=== PATIENT | female | born 1930 | race African-American/Black ===

== ENCOUNTER 2017-07-08 12:05 | Inpatient (IN) | payer OTHER ==
[~2017-07-08] VITALS: Ht 157.5 cm; Wt 45.4 kg
--- NOTE | ~2017-07-08 | EKG ---
[address] [address] ELECTROCARDIOGRAM REPORT Name: ALAN STEEN Room #: 446-P ADM IN M.R.#: [id number] Admission: 07/08/17 Attend Phys: Vince Guzman MD Discharge: Date of : 30 Report #: [id number] THIS REPORT FOR: //name// [facility] ED Test Date: 2017-07-08 Test Time: 12:20:39 Pat Name: ALAN STEEN Department: Room: 446 Gender: F Financial Analysis Consultant: [facility] : 1930 Requested By: Joe Hood Order Number: [id number] MD: Brian Quach Measurements Intervals Stevens Rate: 79 P: TX: QRS: -9 QRSD: 83 T: 158 QT: 382 QTc: 438 Interpretive Statements Atrial fibrillation LVH with secondary repolarization abnormality Inferior infarct, old No previous ECG available for comparison Electronically Signed On 07-09-2017 7:42:33 CDT by Brian Quach [email or web address] <ELECTRONICALLY SIGNED> By: Brian Quach MD, [facility] 07/09/17 0742 1220 1220 Brian Quach MD, FACC /EPI
--- NOTE | ~2017-07-08 | 2DMMODE ---
[facility] [place] [address] 2 D/M-MODE ECHOCARDIOGRAM Name: ALAN STEEN Room #: 446-P ADM IN .R.#: [id number] Admission: 07/08/17 Attend Phys: Vince Guzman MD Discharge: Date of : 30 Date of Service: 07/09/17 0900 Report #: [id number] THIS REPORT FOR: //name// APPROVED REPORT Study performed: 07/09/2017 08:18:18 EXAM: Comprehensive 2D, Doppler, and color-flow Echocardiogram Status: routine BSA: 1.42 HR: 73 bpm BP: 120/54 mmHg Rhythm: Atrial Fibrillation Other Information Study Quality: Adequate/thin body habitus, limited mobility Indications Chest Pressure Congestive Heart Failure Dyspnea Hx: Afib 2D Dimensions RVDd: 40.32 mm IVSd: 12.50 (7-11mm) LVOT Diam: 18.29 (18-24mm) LVDd: 32.08 mm PWd: 11.52 (7-11mm) Ascending Ao: 30.10 (22-36mm) Aortic Root: 29.39 mm Volumes Left Atrial Volume (Systole) Single Plane 4CH: 72.73 mL Single Plane 2CH: 78.32 mL LA ESV Index: 58.00 mL/m2 Aortic Valve AoV Peak Jagdish.: 1.28 m/s AO Peak Gr.: 6.58 mmHg LVOT Max P.72 mmHg LVOT Max V: 0.82 m/s MAI Vmax: 1.69 cm2 Mitral Valve MV Decel. Time: 139.11 ms [facility] [address] [place] [address] 2 D/M-MODE ECHOCARDIOGRAM Name: ALAN STEEN Room #: 446-P [facility] IN .R.#: [id number] Admission: 07/08/17 Attend Phys: Vince Guzman MD Discharge: Date of : 30 Date of Service: 07/09/17 0900 Report #: [id number] E Max Jagdish.: 0.88 m/s Pulmonary Valve PV Peak Jagdish.: 0.78 m/s PV Peak Gr.: 2.45 mmHg Tricuspid Valve TR Peak Jagdish.: 2.46 m/s RAP Estimate: 5.00 mmHg TR Peak Gr.: 24.35 mmHg PA Pressure: 29.00 mmHg Left Ventricle The left ventricle is normal size. There is normal LV segmental wall motion. Mild concentric left ventricular hypertrophy. Left ventricular systolic function is normal. LVEF is 55-60%. This study is not technically sufficient to allow evaluation of the LV diastolic function due to atrial fibrillation. Right Ventricle The right ventricle is normal size. The right ventricular systolic function is normal. Atria Left atrium is severely dilated. Right atrium is moderately dilated. Aortic Valve Aortic valve is mildly thickened and calcified. Trace aortic regurgitation. There is no aortic valvular stenosis. Mitral Valve Mitral valve leaflets are thickened. Mild mitral annular calcification. Mild mitral regurgitation. Tricuspid Valve The tricuspid valve is normal in structure. Moderate to severe tricuspid regurgitation. Estimated PAP is 29mmHg. Pulmonic Valve The pulmonary valve is normal in structure. Trace pulmonic regurgitation. Great Vessels The aortic root is normal in size. The ascending aorta is normal in size. IVC is normal in size and collapses >50% with inspiration. [facility] [address] [place] [address] 2 D/M-MODE ECHOCARDIOGRAM Name: ALAN STEEN Room #: 446-P ADM IN M.R.#: [id number] Admission: 07/08/17 Attend Phys: Vince Guzman MD Discharge: Date of : 30 Date of Service: 07/09/17899 Report #: [id number] Pericardium There is no pericardial effusion. <Conclusion> The left ventricle is normal size. Mild concentric left ventricular hypertrophy. Left ventricular systolic function is normal. Left atrium is severely dilated. Right atrium is moderately dilated. Aortic valve is mildly thickened and calcified. Mitral valve leaflets are thickened. Mild mitral annular calcification. Mild mitral regurgitation. Moderate to severe tricuspid regurgitation. Estimated PAP is 29mmHg. There is no pericardial effusion. <ELECTRONICALLY SIGNED> By: Ernie Kramer MD 07/09/17899 9 9 Ernie Kramer MD /JUAN
--- NOTE | ~2017-07-08 | H ---
[facility] [address] [place] [address] HISTORY AND PHYSICAL Name: ALAN STEEN Room #: 446-P ADM IN M.R.#: [id number] Admission: 07/08/17 Attend Phys: Vince Guzman MD Discharge: Date of : 30 Report #: [id number] THIS REPORT FOR: //name// CC: Danelle Guzman DATE OF SERVICE: 07/08/2017 CHIEF COMPLAINT: Shortness of air. HISTORY OF PRESENT ILLNESS: The patient is an 86-year-old -[place] female who is new to my service as of early this week at [facility]. She reports that she was recently hospitalized for shortness of breath. She does not remember the diagnosis. She complained that she had developed increasing lower extremity edema while she was in the hospital. She reports that her shortness of breath did not really show much improvement while she was at the hospital. She noted that the edema has increased from the time she was hospitalized and even when she was at the assisted facility. On the day of admission, she was found to be significantly short of breath with significant hypoxemia and the staff at the nursing facility could not obtain oxygen saturation above 90% even on 3 liters of oxygen per nasal cannula. She was brought to [facility] Emergency Room for evaluation and subsequently further medical management with working diagnosis of congestive heart failure. PAST MEDICAL HISTORY: Atrial fibrillation requiring chronic anticoagulation with warfarin. She reports that she does not follow with a float operator routinely. Her primary physician is Dr. Hoffmann. Other pertinent history include hyperthyroidism, hypertension, and osteoporosis. ALLERGIES: No known drug allergies. MEDICATIONS: DuoNeb nebulized treatments q.i.d., warfarin 3 mg daily, Toprol-XL 25 mg daily, diltiazem 240 mg daily, lisinopril 10 mg daily, Lasix 20 mg daily, potassium chloride 10 mEq daily, Colace 100 mg b.i.d. p.r.n., MiraLax 17 grams p.o. daily p.r.n., methimazole 5 mg daily, Fosamax 70 mg weekly. FAMILY HISTORY: Noncontributory. SOCIAL HISTORY: The patient is . She lives by herself. She does not use tobacco or alcohol. REVIEW OF SYSTEMS: As per history of present illness, otherwise 10-point review of system is negative. PHYSICAL EXAMINATION: [address] [address] HISTORY AND PHYSICAL Name: ALAN STEEN Room #: 446-P [facility].#: [id number] Admission: 07/08/17 Attend Phys: Vince Guzman MD Discharge: Date of : 30 Report #: [id number] GENERAL: The patient is a pleasant elderly -Micron[place] female, sitting up in bed in no apparent distress. VITAL SIGNS: Reveal temperature of 36.9, pulse of 85, respiratory rate 14, blood pressure ____. HEENT: Head is normocephalic, atraumatic. Pupils are equal and reactive. Extraocular muscles are intact. Oropharynx is moist. NECK: Supple. Trachea midline. LUNGS: With bibasilar crackles that extends custodial up both bases. CARDIOVASCULAR: Reveals irregularly irregular without evidence of distended neck veins or elevated jugular venous pressures. ABDOMEN: Soft, nontender, nondistended with normoactive bowel sounds. SKIN: Warm and dry. Turgor adequate. LYMPHATICS: No cervical or axillary lymphadenopathy. NEUROLOGIC: She is awake, alert, oriented x 3. Cranial nerves 2-12 within normal limits. No focal neurologic deficit or lateralizing signs. LABORATORY DATA: BMP with findings of BUN of 11, creatinine 1.2, GFR 52. Cholesterol is 197. Triglycerides 73. BNP is 3073. Hemoglobin and hematocrit are within normal limits. WBC is 8.2. RADIOGRAPHIC STUDIES: Include a chest x-ray showing cardiomegaly with mild patchy bibasilar atelectasis, scarring or pneumonitis. No evidence of failure. ASSESSMENT: 1. Congestive heart failure with elevated BNP, cardiomegaly and edema. 2. Chronic kidney disease stage 3. 3. Atrial fibrillation, rate controlled. 4. Hyperthyroidism. PLAN: Admission. Appreciate cardiology consultation. An echocardiogram has been ordered. We will give an additional dose of IV Lasix. An echocardiogram has been ordered as per Cardiology. We will resume warfarin and we will give Lovenox for DVT prophylaxis until warfarin is therapeutic. We will continue other home medications. We will also ask physical therapy and occupational therapy to work with her for strengthening and to maintain activities of daily living. By: 1202 1507 Vince Guzman MD /nt
[2017-07-08 12:07] VITALS: BP 152/78
[2017-07-08] MEDS ORDERED: CARDIZEM CD240 MG PO (12:16)
[2017-07-08] MEDS ORDERED: COLACE100 MG PO (12:19)
[2017-07-08] MEDS ORDERED: METHIMAZOLE5 MG PO (12:20)
[2017-07-08] MEDS ORDERED: MIRALAX17 GM PO (12:20)
[2017-07-08] MEDS ORDERED: LISINOPRIL10 MG PO (12:20)
[2017-07-08] MEDS ORDERED: DUONEB 2.5-0.5 M3 ML INH (12:20)
[2017-07-08] MEDS ORDERED: KLOR-CON 1010 MEQ PO (12:21)
[2017-07-08] MEDS ORDERED: LASIX 20 MG TAB20 MG PO (12:21)
[2017-07-08] MEDS ORDERED: ALENDRONATE SOD70 MG PO (12:21)
[2017-07-08] MEDS ORDERED: TOPROL XL25 MG PO (12:22)
[2017-07-08 13:25] LABS: ABSOLUTE NEUTROPHILS 6.5 thou/uL (1.4-8.2); BASOPHILS 0.2 % (0.0-2.0); EOSINOPHILS 0.8 % (0.0-3.0); HEMATOCRIT 37.5 % (37.0-47.0); HEMOGLOBIN 12.5 gm/dL (12.0-15.0); LYMPHOCYTES 11.1 % (24.0-44.0); MCH 31.4 pg (26.0-34.0); MCHC 33.3 g/dL (28.0-37.0); MCV 94.4 fL (80.0-100.0); MONOCYTES 9.5 % (1.0-8.0); PLATELET COUNT 298 thou/uL (150-400); POLYS 78.4 % (36.0-66.0); RBC 3.97 mil/uL (4.20-5.00); RDW 15.1 % (10.5-14.5); WBC 8.2 thou/uL (4.0-11.0)
[2017-07-08 13:27] LABS: MANUAL DIFF NO
[2017-07-08 13:31] LABS: ANION GAP 5 mmol/L (7-16); BUN 11 mg/dL (7-18); CALCIUM 9.2 mg/dL (8.5-10.1); CHLORIDE 100 mmol/L (98-107); CO2 31 mmol/L (21-32); CREATININE 1.2 mg/dL (0.6-1.0); GLUCOSE 105 mg/dL (74-106); POTASSIUM 3.8 mmol/L (3.5-5.1); SODIUM 136 mmol/L (136-145)
[2017-07-08 13:40] LABS: TROPONIN-I < 0.04 ng/mL (<0.04-0.07)
[2017-07-08 14:45] VITALS: BP 124/68
[2017-07-08 15:10] VITALS: BP 116/63
[2017-07-08 16:31] VITALS: BP 108/70
[2017-07-08 19:16] VITALS: BP 138/82
[2017-07-09 03:24] VITALS: BP 140/78
[2017-07-09 07:46] VITALS: BP 120/54
[2017-07-09 08:00] VITALS: BP 120/54
[2017-07-09 09:55] LABS: INR 1.1; PROTIME 11.4 Seconds (9.3-11.4)
[2017-07-09 10:21] LABS: CHOLESTEROL 197 mg/dL (<200); HDL CHOLESTEROL 50 mg/dL (>40); LDL CHOLESTEROL 133 mg/dL (<100); TC:HDL 3.9 Ratio (Not establshd); TRIGLYCERIDE 73 mg/dL (<150); VLDL 15 mg/dL (<40)
[2017-07-09 15:17] VITALS: BP 146/77
[2017-07-09 19:55] VITALS: BP 109/49
[2017-07-10 04:40] VITALS: BP 111/55
[2017-07-10 04:57] LABS: HEMATOCRIT 34.2 % (37.0-47.0); HEMOGLOBIN 11.5 gm/dL (12.0-15.0); MCH 31.5 pg (26.0-34.0); MCHC 33.7 g/dL (28.0-37.0); MCV 93.4 fL (80.0-100.0); RBC 3.66 mil/uL (4.20-5.00); RDW 14.8 % (10.5-14.5); WBC 5.7 thou/uL (4.0-11.0)
[2017-07-10 05:10] LABS: CALCIUM 8.7 mg/dL (8.5-10.1); CREATININE 1.3 mg/dL (0.6-1.0); INR 1.1; PROTIME 11.4 Seconds (9.3-11.4)
[2017-07-10 05:21] LABS: POTASSIUM 2.8 mmol/L (3.5-5.1)
[2017-07-10 07:39] VITALS: BP 107/56
[2017-07-10 12:36] VITALS: BP 107/56
[2017-07-10 14:50] VITALS: BP 75/37
[2017-07-10 16:15] VITALS: BP 82/39
[2017-07-10 20:37] VITALS: BP 93/41
[2017-07-11 04:43] VITALS: BP 86/46
[2017-07-11 07:55] VITALS: BP 99/48
[2017-07-11 15:12] VITALS: BP 126/71
[2017-07-11 20:24] VITALS: BP 95/47
[2017-07-12 04:24] VITALS: BP 121/58
[2017-07-12 06:16] LABS: CALCIUM 8.7 mg/dL (8.5-10.1); CREATININE 1.6 mg/dL (0.6-1.0); POTASSIUM 3.9 mmol/L (3.5-5.1)
[2017-07-12 07:55] VITALS: BP 114/58
[2017-07-12 16:30] VITALS: BP 140/72
[2017-07-12 20:14] VITALS: BP 145/88
[2017-07-12] MEDS ORDERED: K-DUR 20 MEQ T20 MEQ PO (20:14)
[2017-07-12] MEDS ORDERED: COUMADIN 4 MG TA4 M1 PO (20:14)
[2017-07-13 04:13] VITALS: BP 105/59
[2017-07-13 06:27] LABS: CALCIUM 8.8 mg/dL (8.5-10.1); CREATININE 1.4 mg/dL (0.6-1.0); POTASSIUM 3.8 mmol/L (3.5-5.1)
[2017-07-13 06:31] LABS: INR 1.5; PROTIME 14.8 Seconds (9.3-11.4)
[2017-07-13 07:59] VITALS: BP 107/48
[2017-07-13 15:00] VITALS: BP 120/59
== END 2017-07-13 16:40 | DRG 291 ==
LOC: ER 12:05 → 4S 14:38 → EROBS 14:38 → 4S 15:22 → ER 15:22 → 4S 15:47
PROVIDERS: Emergency Medicine; Internal Medicine; Nurse Practitioner Gerontology
DX: I13.0 Hypertensive heart and chronic kidney disease with heart failure and stage 1 through stage 4 chronic kidney disease, or unspecified chronic kidney disease (principal); J96.91 Respiratory failure, unspecified with hypoxia; I50.31 Acute diastolic (congestive) heart failure; E44.0 Moderate protein-calorie malnutrition; E03.9 Hypothyroidism, unspecified; M81.0 Age-related osteoporosis without current pathological fracture; N18.3 Chronic kidney disease, stage 3 (moderate); K59.00 Constipation, unspecified; E87.6 Hypokalemia; I48.2 Chronic atrial fibrillation; Z79.899 Other long term (current) drug therapy; Z79.01 Long term (current) use of anticoagulants; Z23 Encounter for immunization; Z99.81 Dependence on supplemental oxygen
CPT/HCPCS: 10100